=== PATIENT | male | born 1960 | race African-American/Black ===

== ENCOUNTER → 2016-04-15 | Outpatient (REF) | payer OTHER | LOC: M SMT 13:15 | PROVIDERS: ATTEND Nurse Practitioner Women's Health | DX: N50.819 Testicular pain, unspecified (principal) ==

== ENCOUNTER → 2016-06-08 | Outpatient (CLI) | payer OTHER | LOC: M SMT 08:09 | PROVIDERS: ATTEND Urology | DX: N46.9 Male infertility, unspecified (principal) ==

== ENCOUNTER → 2022-06-09 | Day surgery (SDC) | payer OTHER ==
[~2022-06-09] VITALS: Ht 177.8 cm; Wt 99.8 kg
[~2022-06-09] MED LIST: ACETYLCHOLINE OPHTH SOLN 1% 2ML (MIOCHOL-E) As Ordered ONE; BSS IRRIG/VANCO(10MG)/TOBRA(5MG)/EPINEPH(1:1000-0.5CC)500ML BAG-ORONLY IR ONE; CEFUROXIME 1MG/0.1ML INTRACAMERAL INJ As Ordered ONE; CELE1CAP7 PO; CYCLOPENTOLATE 1% OPHTH SOLN 2ML BTL OD SCH; DUOVISC (0.50ML VISCOAT/0.85ML PROVISC) OPHTH KIT As Ordered ONE; GARL3CAP4 PO; LATA0.0015 OU; LIDOCAINE 1% SDV 5ML VIAL As Ordered ONE; LIDOCAINE 3.5 % 1ML OPHTH TOPICAL GEL OU ONE; LISI40TA4 PO; MIDAZOLAM INJ 2MG/2ML VIAL As Ordered ONE; OFLOXACIN 0.3 % (OCUFLOX) OPTH SOL 5ML OD ONE; OMEG100011 PO; OMEP-173 PO; PHENYLEPHRINE 10% OPHTH SOL 5ML OD PRN; PHENYLEPHRINE 2.5% OPHTH SOL 2ML OD SCH; TROPICAMIDE 1% OPHTH SOLN 15ML OD SCH; fentaNYL 100 MCG/2 ML INJECTION As Ordered ONE
== END | disposition home or self-care (01) ==
LOC: M SDC 11:05
PROVIDERS: ATTEND Ophthalmology
DX: H25.11 Age-related nuclear cataract, right eye (principal); H40.811 Glaucoma with increased episcleral venous pressure, right eye; Z53.20 Procedure and treatment not carried out because of patient's decision for unspecified reasons
CPT/HCPCS: J2250; J3010

== ENCOUNTER 2022-11-03 09:43 | Day surgery (SDC) | payer OTHER ==
[~2022-11-03] VITALS: Ht 177.8 cm; Wt 95.7 kg
[~2022-11-03 09:43] MED LIST changes: -ACETYLCHOLINE OPHTH SOLN 1% 2ML (MIOCHOL-E) As Ordered ONE; -CELE1CAP7 PO; +CELE1CAP8 PO; -DUOVISC (0.50ML VISCOAT/0.85ML PROVISC) OPHTH KIT As Ordered ONE; -MIDAZOLAM INJ 2MG/2ML VIAL As Ordered ONE; -fentaNYL 100 MCG/2 ML INJECTION As Ordered ONE
[2022-11-03] MEDS ORDERED: propofoL 200 MG/20 ML VIAL As Ordered ONE (12:23)
[2022-11-03] MEDS ORDERED: hydrALAZINE 20MG/ML 1ML VIAL As Ordered ONE (12:23)
[2022-11-03] MEDS ORDERED: MIDAZOLAM INJ 2MG/2ML VIAL As Ordered ONE (12:28)
[2022-11-03] MEDS ORDERED: fentaNYL 100 MCG/2 ML INJECTION As Ordered ONE (12:28)
[2022-11-03 12:42] VITALS: BP 172/92; TEMP 97.5; O2SAT 100
== END 2022-11-03 14:25 | disposition home or self-care (01) ==
LOC: M SDC 09:43
PROVIDERS: ATTEND Ophthalmology
DX: H26.9 Unspecified cataract (principal); H40.9 Unspecified glaucoma; I10 Essential (primary) hypertension; K21.9 Gastro-esophageal reflux disease without esophagitis; Z79.899 Other long term (current) drug therapy
CPT/HCPCS: 66183; 66988; C1783; J0360; J0697; J2250; J3010; V2632